=== PATIENT | male | born 1990 | race Caucasian/White ===

== ENCOUNTER 2019-12-25 10:35 | Outpatient (CLI) | payer SELFPAY ==
--- NOTE | 2019-12-25 10:48 | MR_ITS ---
WS: [id number] MRI LEFT SHOULDER NONCONTRAST TECHNIQUE: Sagittal T2, coronal T1, T2 and proton density imaging. Axial gradient PDE imaging. CLINICAL INFORMATION: rotator cuff injury COMPARISON: None. 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 No significan t subacromial or subdeltoid fluid. Normal supraspinatus and infraspinatus. Normal teres minor. Normal subscapularis tendon distally. No full-thickness rotator cuff tears. Normal biceps tendon in the bicipital groove. Normal glenoid labrum. Normal soft tissues. MR/MR shoulder LT wo con* [id number] IMPRESSION: 1. Normal rotator cuff. No rotator cuff tears. 2. Mild edema at the AC joint with minimal downsloping of the acromion. 3. Normal biceps tendon in the bicipital groove. 4. No other significant findings.
== END 2019-12-25 10:36 | disposition home or self-care (01) ==
LOC: RADWPI 10:44
PROVIDERS: PCP Nurse Practitioner; Visit Provider Nurse Practitioner Family
DX: S46.002A Unspecified injury of muscle(s) and tendon(s) of the rotator cuff of left shoulder, initial encounter (principal); X58.XXXA Exposure to other specified factors, initial encounter
CPT/HCPCS: 73221

== ENCOUNTER → 2020-02-10 14:31 | Outpatient (BNVA) | payer SELFPAY | PROVIDERS: PCP Nurse Practitioner; Referring Provider Nurse Practitioner Family; Visit Provider Specialist | DX: M25.512 Pain in left shoulder (principal) | CPT/HCPCS: 73030 ==

== ENCOUNTER 2020-08-23 13:03 | Emergency (ER) | payer SELFPAY ==
[2020-08-23 13:09] VITALS: BP 146/92; PULSE 84; RESP 14; TEMP 36.1; O2SAT 98; BMI 29.2
--- NOTE | 2020-08-23 14:05 | W.ED.MALEGU ---
HPI - Male Genitourinary General: Chief complaint: Urogenital-Male Stated complaint: PAIN IN TESTICLES Time Seen by Provider: 08/23/20 14:01 Source: patient Mode of arrival: ambulatory Limitations: no limitations History of Present Illness: HPI Narrative: Peng is a nice 30-year-old male comes in complaining of left testicular pain. States the pain began last night. Pain is been constant. Patient states he had similar pain in the past and was diagnosed with epididymitis. Patient denies any burning or pain when he urinates. He denies any lumps or swelling in his groin. Patient does believe his left testicle is slightly swollen. He denies any risk factors for sexually-transmitted infections. He denies any fevers, chills, nausea or vomiting. He is unaware of anything that makes his pain better or worse. Associated symptoms: Deny dysuria, hematuria, nausea or vomiting Review of Systems Const: Denies: fever(s), chills, body aches, fatigue, malaise or diaphoresis Eyes: Denies: change in vision, blurry vision, photophobia, eye discomfort, eye discharge, eye redness or yellow eyes ENMT: Denies: throat pain, odynophagia, hoarseness, swelling of lips/tongue, ear or mastoid pain, ear discharge, change in hearing or nasal discharge Card: Denies: chest pain, palpitations, irregular heart rhythm, edema, lightheadedness, syncope, pre-syncope, dyspnea on exertion or orthopnea Resp: Denies: dyspnea, productive cough, non-productive cough, wheezing, hemoptysis or chest congestion GI: Denies: abdominal pain, nausea, vomiting, hematemesis, coffee ground emesis, heartburn, diarrhea, constipation, GI cramping, hematochezia or melena : Reports: testicular pain; Denies: flank pain, dysuria, urinary frequency, urinary urgency or hematuria Musc: Denies: neck pain, back pain, extremity pain, extremity swelling, joint pain, joint swelling, joint redness, joint warmth or joint stiffness Skin/Breast: Denies: rash, pruritus, erythema, skin pain or skin tenderness Neuro: Denies: headache(s), numbness in extremities, weakness in extremities, sensory changes, lack of coordination, difficulty walking, dizziness, vertigo, confusion, Slurred speech present or seizure-like activity Omari/Lymph: Denies: easy bruising, easy bleeding, petechiae, purpura or enlarged lymph nodes All/Imm: Denies: urticaria, throat swelling, tongue swelling, facial swelling or acute wheezing PFSH ED PFSH: Medical History (Updated 08/23/20 @ 15:23 by Ana Moeller) No pertinent past medical history Social History Smoking and tobacco status: current every day smoker Alcohol intake: current Alcohol intake frequency: holidays/special occasions only Physical Exam Const: COMMON NORMALS: no acute distress, patient oriented x3, no limitations and alert GENERAL APPEARANCE: cooperative HENMT: COMMON NORMALS: normocephalic, atraumatic, external ears normal, EAC's normal and Normal external nose present HEAD & SCALP: normal to inspection, normocephalic and atraumatic FACE & SINUS: normal facial exam and face symmetric NOSE: Normal external nose present and Normal nares present EXTERNAL EAR: Yes external ears normal EXTERNAL AUDITORY CANAL: EAC's normal MOUTH: Normal oral and palatal mucosa present, lip normal and tongue normal Eye: COMMON NORMALS: Equal, round and reactive pupils present and conjunctivae normal GENERAL EYE: appearance normal, both eyes and all related structures ALIGNMENT: Yes alignment normal PERIORBITAL: periorbital findings normal EYELID: eyelids normal CONJUNCTIVA: Yes conjunctivae normal SCLERA: sclerae normal PUPIL: Yes Equal, round and reactive pupils present Neck/C-Spine: COMMON NORMALS: full ROM, no lymphadenopathy, supple, no meningeal signs and no JVD GENERAL: Yes normal visual inspection and Yes trachea midline Chest: COMMONS NORMALS: normal inspection of the chest and normal palpation of entire chest wall Resp: COMMON NORMALS: normal respiratory effort, No retractions, No use of accessory muscles and clear to auscultation bilaterally EFFORT & INSPECTION: Yes able to speak in complete sentences and Yes symmetric chest movement AUSCULTATION: clear to auscultation bilaterally, no crackles, no rales, no rhonchi and no wheezes Cardio: COMMON NORMALS: no JVD, regular rate, regular rhythm, S1 normal heart sound present and S2 normal heart sound present RATE: regular rate RHYTHM: regular rhythm HEART SOUNDS: S1 normal heart sound present, S2 normal heart sound present, no click, no gallops, no murmurs and no rubs GI: COMMON NORMALS: Soft to palpation and No hepatosplenomegaly present PALPATION: Yes Soft to palpation, No Tenderness to palpation present (GI), No Guarding due to palpation present (GI), No Rigid due to palpation, Yes No hepatosplenomegaly present, No Hernia present, No Palpable mass present and No Pulsatile mass present : COMMON NORMALS: Yes no CVA tenderness BLADDER/KIDNEY EXAM: Yes no CVA tenderness PENIS: normal penis MEATUS: meatus normal SCROTUM: Yes testes descended bilaterally, Yes Cremasteric reflex present, Yes Scrotal tenderness present (Left testicle), No ecchymosis and Yes scrotal swelling Scrotal swelling laterality: left Back/Pelvis: COMMON NORMALS: no CVA tenderness, thoracic and lumbar spine normal to inspection, no thoracic nor lumbar tenderness and thoraco-lumbar ROM normal Extremity: COMMON NORMALS: normal to inspection, full ROM, capillary refill normal, no joint enlargement, no clubbing, cyanosis or edema and no calf tenderness Neuro: COMMON NORMALS: patient oriented x3, CN's II-XII intact bilaterally, moves all extremities, no focal motor deficits and no sensory deficits noted SENSORIUM/ORIENTATION: Yes alert MENINGEAL SIGNS: Yes no meningeal signs SPEECH: speech normal Psych: COMMON NORMALS: mental status grossly normal, Normal thought process present, cooperative, normal affect, speech normal and activity/motor behavior normal SPEECH: Yes normal speech THOUGHT PROCESS: Normal thought process present Skin: COMMON NORMALS: no rashes or lesions noted, turgor normal, no jaundice, no petechiae and no mottling GENERAL SKIN EXAM: no rashes or lesions noted and turgor normal Course Vital Signs: Vital signs: Vital Signs Temperature 97.0 F L 08/23/20 13:09 Pulse Rate 88 08/23/20 15:53 Respiratory Rate 14 08/23/20 15:53 Blood Pressure 122/75 08/23/20 15:53 Pulse Oximetry 96 08/23/20 15:53 MDM - Male MDM Narrative: Medical decision making narrative: Peng is a nice 30-year-old male who comes in complaining of left testicular pain. There is no sign of torsion on exam or ultrasound. I have treated him for sexually transmitted infections as a cause but also, send him home with antibiotics for epididymitis. The patient does not appear to be in significant distress. I see no sign of abscess, hernia or otherwise deeper infection. Patient agrees to return should his symptoms change or worsen and he understands and will follow up with Dr. Kat as this is a recurrent episode of epididymitis. Lab Data: Attestation: I reviewed the patient's lab results. Labs: Lab Results 08/23/20 Range/Units 14:55 Urine Color Yellow (Yellow) Urine Appearance Clear (CLEAR) Urine pH 6 (5-7) Ur Specific Gravit y 1.020 (1.005-1.030) Urine Protein Neg (Negative) Urine Glucose (UA) Norm (Normal) Urine Ketones Negative (Negative) Urine Blood Neg (Negative) Urine Nitrate Negative (Negative) Urine Bilirubin Neg (Negative) Urine Urobilinogen 1 H (Negative) mg/dL Ur Leukocyte Marry ase Trace H (Negative) Imaging Data: US Scrotum and contents.: Radiologist's impression: [address] [address] Ultrasound Report Signed Patient: Peng Del Real Unit #: [id number] : 1990 Age/Sex: 30 / M ADM Date: 08/23/20 Loc: ER Room/Bed: Attending Dr: Ordering Provider/Ordering MD: Ana Moeller DO Date of Service: 08/23/20 Procedure(s): US scrotum [id number] Accession Number(s): [id number] Report Number: [id number] PROCEDURE INFORMATION: Exam: US Scrotum Exam date and time: 08/23/2020 2:18 PM Age: 30 years old Clinical indication: Scrotum pain; Additional info: Left testicular pain TECHNIQUE: Imaging protocol: Real-time ultrasound of the scrotum and contents with color Doppler and image documentation. COMPARISON: No relevant prior studies available. FINDINGS: Right testicle: Right testicle measures 3.3 x 4.4 x 2.8 cm. Left testicle: There is mild increased vascularity in the left testicle in relation to the right. Left testicle measures 4.2 x 2.2 x 3.2 cm. Epididymides: There are 2 left epididymal head cysts the larger of which measures 6 mm. Right epididymis measures 1.1 cm. Left epididymis measures 1.4 cm. Scrotum: Small bilateral hydroceles. Small left scrotal varicocele measures 3 mm. US/ scrotum [id number] IMPRESSION: 1. There is mild increased vascularity in the left testicle compared to the right consistent with orchitis. 2. Small bilateral hydroceles. 3. There are left epididymal head cysts the larger of which measures 6 mm. 4. Small left scrotal varicocele measures 3 mm. Dictated By: Stephany Chris MD Signed By: Stephany Chris MD Signed Date/Time: 08/23/201505 DD/ 150 Discharge Plan Discharge Patient Disposition: Home Clinical Impression: Epididymitis Condition: Stable Prescriptions: New levofloxacin 500 mg tablet 500 mg PO DAILY 10 Days Qty: 10 RF: 0 naproxen 250 mg tablet 500 mg PO BID PRN (Reason: pain) Qty: 20 RF: 0 No Action ibuprofen 800 mg tablet 800 mg PO Q8H PRN (Reason: pain) Qty: 60 RF: 1 cyclobenzaprine 10 mg tablet 10 mg PO TID PRN (Reason: muscle spasm) 30 Days Qty: 90 RF: 1 Discharge Orders: Discharge Order (Routine); Ordered 08/23/20 Ordered By: Ana Moeller Referrals: Oni Kat MD [Physician] - 1-3 days Shea Vail FNP [Primary Care Provider] - Discharge Diet: Advance as tolerated Discharge Activity: Increase activity as tolerated Patient Instructions: Epididymitis (ED) Activity Restrictions/Additional Instructions: Please return to the ER immediately for any of the signs or symptoms listed on your discharge instruction sheets, worsening/changing of your symptoms, you are not getting better as quickly as expected, or for ANY other cause or concerns. Coding Level of Care Code ED Satellite Installer for Chg Fwd Exam Comprehensive
[2020-08-23 15:04] LABS: Add Urine Microscopic? NO
[2020-08-23 15:09] LABS: Bilirubin Urine Neg (Negative); Blood Urine Neg (Negative); Glucose Urine UA Norm (Normal); Ketones Urine Negative (Negative); Nitrate Urine Negative (Negative); Protein Urine Neg (Negative); Urine Appearance Clear (CLEAR); Urine Color Yellow (Yellow); Urobilinogen Urine 1 mg/dL (Negative); pH Urine 6 (5-7)
[2020-08-23 15:10] LABS: Leukocyte Esterase Urine Trace (Negative)
[2020-08-23] MEDS: cefTRIAXone 1,000 mg SDV 1000 MG IM (15:43)
[2020-08-23] MEDS: lidocaine 1% INJ 20 mL IM (15:43)
[2020-08-23] MEDS: azithromycin 250 mg Tablet 1000 MG PO (15:43)
[2020-08-23 15:53] VITALS: BP 122/75; PULSE 88; RESP 14; O2SAT 96
== END 2020-08-23 15:53 | disposition home or self-care (01) ==
PROVIDERS: Nurse Practitioner Family; Emergency Provider Emergency Medicine; PCP Nurse Practitioner
DX: N45.1 Epididymitis (principal); F17.210 Nicotine dependence, cigarettes, uncomplicated
CPT/HCPCS: 12345; 76870; 81003; 87491; 87591; 96372; 99281; 99283; J0696; Q0144

== ENCOUNTER 2023-06-02 06:13 | Outpatient (CLI) | payer BC, SELFPAY ==
--- NOTE | 2023-06-02 | USCV_ITS ---
Peng Del Real Age: 32 Gender: M : 1990 Exam Date: 06/02/2023 06:26 Ordering Phys: Trisha Butler ARCADIO Technologist: NOE Exam Location: [facility] – [place] Indication: SYNCOPE BP: 124 / 67 HR: 89 Rhythm: Sinus Technical Quality: Adequate MEASUREMENTS (Male / Female) Normal Values 2D ECHO LVOT Diameter 2.0 cm LV Ejection Fraction MOD 2C 65.9 % LV Ejection Fraction 2C AL 69.2 % LA Diameter 3.4 cm LA Width 3.5 cm LA Height 4.3 cm RA Width 4.4 cm RA Height 4.4 cm Aorta at Sinotubular Diameter 2.6 cm IVC Diameter 1.2 cm M-MODE Aortic Annulus Diameter 3.3 cm LA Ao Ratio MM 1.1 MV E Point Septal Separation 0.6 cm DOPPLER AV Peak Velocity 151.0 cm/s LVOT Peak Velocity 125.0 cm/s AV Area Cont Eq vti 2.6 cm squared AV Area Cont Eq pk 2.6 cm squared MV Peak Velocity 118.0 cm/s MV Area PHT 3.0 cm squared Mitral E to A Ratio 1.9 MV E' Velocity 73.0 cm/s Mitral E to MV E' Ratio 7.6 Mitral E to LV E' Lateral Ratio 6.4 Mitral E to LV E' Septal Ratio 9.5 TR Peak Velocity 163.4 cm/s TR Peak Gradient 10.7 mmHg TR Mean Velocity 127.4 cm/s TR Mean Gradient 7.2 mmHg TR Velocity Time Integral 47.8 cm TV Peak E Velocity 54.0 cm/s Right Atrial Pressure 3.0 mmHg Pulmonary Artery Systolic Pressu 13.7 mmHg PV Peak Velocity 132.0 cm/s RV Acceleration Time 0.1 s RV Ejection Time 0.3 s RV AcT/ET 0.5 FINDINGS Left Ventricle Normal left ventricular size, systolic function and wall thickness, with no regional wall motion abnormalities. Normal left ventricular wall thickness. Normal diastolic filling pattern. Left ventricular ejection fraction is estimated at 65 %. Right Ventricle The right ventricle is normal in size and function. Right Atrium The right atrium is normal in size. Left Atrium The left atrium is normal in size. Mitral Valve Structurally normal mitral valve without significant stenosis or prolapse. There is no mitral regurgitation. Aortic Valve Structurally normal aortic valve without significant sclerosis or stenosis. There is no aortic regurgitation. Tricuspid Valve Structurally normal tricuspid valve without significant stenosis or regurgitation. Pulmonary artery systolic pressure is normal. Pulmonic Valve Structurally normal pulmonic valve without significant stenosis. There is no pulmonic regurgitation. Pericardium Normal pericardium without effusion. Aorta Normal ascending aorta dimension. IVC The inferior vena cava appears normal. CONCLUSIONS Normal transthoracic echocardiogram. There are no prior echocardiogram studies to compare. Dr. Alexandru Stephenson MD (Electronically Signed) Final Date: 02 June 2023 12:52 S
== END 2023-06-02 06:14 | disposition home or self-care (01) ==
PROVIDERS: PCP Nurse Practitioner Family; Visit Provider Nurse Practitioner Family
DX: R55 Syncope and collapse (principal)
CPT/HCPCS: 93306